=== PATIENT | male | born 1965 | race Caucasian/White ===

== ENCOUNTER → 2023-06-04 16:35 | Outpatient (CLI) | payer OTHER, SELFPAY ==
--- NOTE | 2023-06-04 16:37 | DI.RAD.S_ITS ---
PROCEDURE: XR CHEST 2V INDICATIONS: Cough x3 weeks, short of breath TECHNIQUE: 2 views of the chest were acquired. COMPARISON: None. FINDINGS: Surgical changes and devices: None. Lungs and pleura: Lungs are clear. No pleural effusions or pneumothorax. Mediastinum: Mediastinal contours are normal. Heart size is normal. Bones and chest wall: No suspicious bony abnormalities. Soft tissues appear unremarkable. IMPRESSION: No acute cardiopulmonary abnormality is seen. Dictated by: Stacy Mi MD, PhD on 06/04/2023 at 16:42 Approved by: Stacy Mi MD, PhD on 06/04/2023 at 16:43
== END ==
PROVIDERS: Referring Provider Physician Assistant; Visit Provider Physician Assistant
DX: R05.9 Cough, unspecified (principal)
CPT/HCPCS: 71046

== ENCOUNTER → 2024-05-01 12:15 | Outpatient (CLI) | payer OTHER, SELFPAY ==
--- NOTE | 2024-05-01 12:16 | DI.RAD.S_ITS ---
PROCEDURE: XR CHEST 2V INDICATIONS: evaluate TECHNIQUE: 2 views of the chest were acquired. COMPARISON: [facility], CR, XR CHEST 2V, 06/04/2023, 16:39. FINDINGS: Surgical changes and devices: None. Lungs and pleura: Lungs are clear. No pleural effusions or pneumothorax. Mediastinum: Mediastinal contours are normal. Heart size is normal. Bones and chest wall: No suspicious bony abnormalities. Soft tissues appear unremarkable. IMPRESSION: No acute cardiopulmonary process. Dictated by: Julio Glynn M.D. on 05/01/2024 at 17:08 Approved by: Julio Glynn M.D. on 05/01/2024 at 17:10
== END ==
PROVIDERS: PCP Family Medicine; Referring Provider Family Medicine; Visit Provider Family Medicine
DX: R06.02 Shortness of breath (principal)
CPT/HCPCS: 71046

== ENCOUNTER → 2024-07-06 13:31 | Outpatient (CLI) | payer OTHER, SELFPAY ==
--- NOTE | 2024-07-06 14:00 | DI.ECHO.S_ITS ---
[place] [facility]---------+ [facility] : : [address] : : [place] : : [id number] : : Phone: [phone] Echocardiogram Report + + :Name: AMADOU GARCIA Study Date: 07/06/2024 Height: 68 in : :Hospital ReadingLocation: Weight: 210 lb : : Gender: Male BSA: 2.1 m2 : :: 1965 Age: 59 yrs BP: 158/91 mmHg: :Reason For Study: HYPERTENSION, EDEMA : :Ordering Physician: STANLEY, : :DEREK Gomez Performed By: Derek Tucker : :Referring: DEREK ANGEL : + + Interpretation Summary Normal left ventricle size with ejection fraction 60-65%. The left atrium is moderately dilated. No valvular abnormality. Procedure: A two-dimensional transthoracic echocardiogram with color flow and Doppler was performed. The study quality was technically good. There is no prior echocardiogram noted for this patient. The patient was in normal sinus rhythm during the exam. Left Ventricle: The left ventricle is normal in size. There is normal left ventricular wall thickness. There is no ventricular septal defect visualized. The ejection fraction is estimated to be 60-65%. There are no focal wall motion abnormalities. Diastolic parameters suggest probable normal left ventricular diastolic function and normal filling pressures. Right Ventricle: The right ventricle is normal in size and function. Atria: The left atrium is moderately dilated. Right atrial size is normal. The interatrial septum grossly appears intact with no obvious evidence for an atrial septal defect. Mitral Valve: The mitral valve is normal in structure and function. There is trace mitral regurgitation. Aortic Valve: The aortic valve is trileaflet. The aortic valve opens well. There is trace aortic regurgitation. Tricuspid Valve: The tricuspid valve is normal in structure and function. There is trace tricuspid regurgitation. The right ventricular systolic pressure is estimated to be at least 30 mmHg based on an estimated right atrial pressure of 3 mm Hg. Pulmonic Valve: The pulmonic valve is normal in structure and function. There is no pulmonic valvular regurgitation. Great Vessels: The aortic root is normal size. The dimensions of the ascending aorta are normal. The pulmonary artery is normal size. The IVC is of normal diameter and collapses greater than 50% with a sniff. This suggests a low right atrial pressure of 3 mm Hg. Pericardium/ Pleura There is no pericardial effusion. There is no pleural effusion. MMode/2D Measurements & Calculations LVIDd: 5.0 cm LVOT diam: 2.0 cm LVIDs: 3.7 cm Ao root diam: 2.9 cm FS: 26.3 % asc Aorta Diam: 3.6 cm EPSS: 0.42 cm Ao Arch Diam (Prox Trans): 3.1 cm IVSd: 1.1 cm LVPWd: 1.0 cm LV hernandez. diameter/BSA (cm/m^2): 2.4 LV sys. diameter/BSA (cm/m^2): 1.8 LA A2 area: 20.2 cm2 RA long axis: 4.8 cm LA A4 area: 33.2 cm2 RA area: 13.7 cm2 LA length (vol): 6.8 cm RA vol: 33.4 ml LA vol: 84.2 ml RA : 16.0 ml/m2 LA vol index: 40.3 ml/m2 IVC diam: 1.8 cm RVD1 (basal): 2.9 cm RVD2 (mid): 2.3 cm TAPSE: 2.9 cm Doppler Measurements & Calculations Ao V2 max: 159.2 cm/sec LVOT Max Marshal: 94.6 cm/sec Ao V2 mean: 106.0 cm/sec LV V1 max P.6 mmHg Ao max P.1 mmHg LV V1 VTI: 19.4 cm Ao mean P.2 mmHg SARAH(I,D): 2.0 cm2 Ao V2 VTI: 31.1 cm SARAH(V,D): 1.9 cm2 sev ratio: 0.62 SARAH indexed to BSA (cm^2/m^2): 0.96 MV E max marshal: 64.8 cm/sec TR max marshal: 259.2 cm/sec MV A max marshal: 52.2 cm/sec TR max P.9 mmHg MV E/A: 1.2 PA V2 max: 96.8 cm/sec Med Peak E' Marshal: 9.9 cm/sec PA V2 mean: 67.1 cm/sec E/E' med: 6.5 PA mean P.1 mmHg Lat Peak E' Marshal: 11.9 cm/sec PA pr(Accel): 17.3 mmHg E/E' lat: 5.4 E/e' average: 6.0 MV dec time: 0.13 sec SV(LVOT): 62.1 ml Electronically signed by: Anjali Elias on Reading Physician:07/06/2024 04:24 PM
== END ==
LOC: ECHO 13:31
PROVIDERS: PCP Family Medicine; Referring Provider Family Medicine; Visit Provider Family Medicine
DX: I10 Essential (primary) hypertension (principal); R60.0 Localized edema; R06.09 Other forms of dyspnea
CPT/HCPCS: 93306

== ENCOUNTER → 2025-07-08 20:11 | Outpatient (ROUT) | payer OTHER, SELFPAY | PROVIDERS: PCP Family Medicine; Visit Provider Registered Nurse | DX: L03.90 Cellulitis, unspecified (principal); Z79.899 Other long term (current) drug therapy | CPT/HCPCS: 87070; 87075; 87205 ==